=== PATIENT | female | born 1980 | race Two or more races ===

== ENCOUNTER 2017-07-31 16:31 | Emergency (ER) | payer SELFPAY ==
[~2017-07-31] VITALS: Ht 154.9 cm; Wt 76.3 kg
[2017-07-31] MEDS ORDERED: SODIUM CHLORIDE FLUSH 10ML SYR IVF ONE (17:00)
[2017-07-31] MEDS ORDERED: DIPHENHYDRAMINE 50 MG/ML, 1ML IVPush ONE (17:00)
[2017-07-31] MEDS ORDERED: SODIUM CHLORIDE 0.9% 1,000ML IVBOLUS ONE (17:00)
[2017-07-31] MEDS ORDERED: METOCLOPRAMIDE 5 MG/ML, 2ML IVPush ONE (17:00)
[2017-07-31] MEDS ORDERED: KETOROLAC 30 MG/1 ML IVPush ONE (17:00)
[2017-07-31] MEDS ORDERED: KETOROLAC 30 MG/1 ML ONE (17:10)
[2017-07-31] MEDS ORDERED: METOCLOPRAMIDE 5 MG/ML, 2ML ONE (17:11)
[2017-07-31] MEDS ORDERED: DIPHENHYDRAMINE 50 MG/ML, 1ML ONE (17:11)
[2017-07-31 17:27] LABS: HEMATOCRIT 40.9 % (34.6-47.8); HEMOGLOBIN 13.9 g/dL (11.7-16.4); WHITE BLOOD COUNT 11.4 x10^3/uL (3.4-10)
[2017-07-31 17:35] VITALS: BP 136/85
[2017-07-31 17:40] LABS: BLOOD UREA NITROGEN 12 mg/dL (7-18)
== END 2017-07-31 18:52 | disposition home or self-care (01) ==
LOC: ED 18:27
DX: R51 Headache (principal); M54.5 Low back pain; S16.1XXA Strain of muscle, fascia and tendon at neck level, initial encounter; X58.XXXA Exposure to other specified factors, initial encounter; Y92.89 Other specified places as the place of occurrence of the external cause; Y99.8 Other external cause status; Y93.89 Activity, other specified
CPT/HCPCS: 36415; 72050; 80048; 81001; 82040; 84703; 85025; 87086; 93005; 96361; 96374; 96375; 99285; J1200; J1885; J2765; J7030